=== PATIENT | male | born 1935 | race Caucasian/White ===

== ENCOUNTER 2017-02-25 17:04 | Emergency (ER) | payer MEDICARE ==
[2017-02-25 18:26] VITALS: BP 147/67
--- NOTE | 2017-02-25 19:09 | UC ---
Abdominal Pain Male HPI - HPI Summary HPI Summary: 81 male with chronic intermittent left sided abd pain for years Multiple workups have yielded no explanation His abd symptoms have not changed but for the past 2 days he has had some left sided chest pain pains are mild and last minutes (about 2) no SOB no n/v no recent diarrhea 4 weeks ago he had syncopal episode and was evaluated at [facility] by a wet inspector optical glass no f/c - History of Current Complaint Chief Complaint: UCAbdominalPain Stated Complaint: ACHES/PAINS Time Seen by Provider: 02/25/17 18:04 Hx Obtained From: Patient Onset/Duration: Gradual Onset, Lasting Weeks - years Timing: Constant Severity Initially: Mild Severity Currently: None Pain Intensity: 3 Pain Scale Used: 0-10 Numeric Location: Discrete At: LUQ Radiates: Yes Character: Cramping Aggravating Factor(s):: Nothing Alleviating Factor(s): Spontaneous Resolution Associated Signs And Symptoms: Positive: Chest Pain - Allergies/Home Medications Allergies/Adverse Reactions: Allergies Allergy/AdvReac Type Severity Reaction Status Date / Time Sulfa Antibiotics Allergy Intermediate Rash And Verified 02/25/17 18:27 Itching Home Medications: Home Medications Omeprazole CAP* [Prilosec CAP* 20 MG] 20 mg PO DAILY PRN 02/25/17 [History Confirmed 02/25/17] PMH/Surg Hx/FS Hx/Imm Hx Endocrine History Of: Reports: Diabetes - diet controlled, Thyroid Disease Cardiovascular History Of: Reports: Cardiac Disorders - [place] 1990 Denies: Pacemaker/ICD, Congestive Heart Failure Comment Only: Hypertension - on medication Respiratory History Of: Denies: COPD GI/ History Of: Denies: Renal Disease - Surgical History Surgical History: Yes Surgery Procedure, Year, and Place: 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 fx ankle. angioplasty-COPIES OF STENT CARDS ON FILE FROM 04/21 MRI, LENS IMPLANT BOTH EYES. - Family History Known Family History: Positive: Hypertension - Social History Alcohol Use: Rare Substance Use Type: None Smoking Status (MU): Former Smoker When Did the Patient Quit Smoking/Using Tobacco: very rarely in college Review of Systems Constitutional: Negative Skin: Negative Eyes: Negative ENT: Negative Respiratory: Negative Cardiovascular: Chest Pain - none here Gastrointestinal: Abdominal Pain - none now Genitourinary: Negative Motor: Negative Neurovascular: Negative Musculoskeletal: Negative Neurological: Negative Psychological: Negative All Other Systems Reviewed And Are Negative: Yes Physical Exam Triage Information Reviewed: Yes Appearance: Well-Appearing, No Pain Distress, Well-Nourished Vital Signs: Initial Vital Signs Temp 98.6 F 02/25/17 18:06 Pulse 65 02/25/17 18:06 Resp 18 02/25/17 18:06 BP 147/67 02/25/17 18:06 Pulse Ox 100 02/25/17 18:06 Vital Signs Reviewed: Yes Eyes: Positive: Conjunctiva Clear ENT: Positive: Hearing grossly normal. Negative: Nasal congestion, Nasal drainage, Trismus, Muffled/hoarse voice Neck: Positive: Supple, Nontender, No Lymphadenopathy Respiratory: Positive: Lungs clear, Normal breath sounds, No respiratory distress, No accessory muscle use Cardiovascular: Positive: RRR, No Murmur. Negative: Tachycardia, Bradycardia Abdomen Description: Positive: No Organomegaly, Soft. Negative: CVA Tenderness (R), CVA Tenderness (L), Hepatomegaly, Pulsatile Mass, Splenomegaly Musculoskeletal: Positive: ROM Intact, Edema @ - pretibial Neurological: Positive: Alert Psychological Exam: Normal Skin Exam: Normal Diagnostics - EKG Cardiac Rate: NL Cardiac Rhythm: Sinus: Normal Ectopy: None ST Segment: Normal Abd Pain Male Course/Dx - Course Course Of Treatment: I explained that we could not rule out a cardiac cause of his symptoms. Both he as his decline - Differential Dx/Clinical Impression Provider Diagnoses: chronic abdominal pain. chest pain of uncertain cause Discharge - Discharge Plan Condition: Stable Disposition: HOME Patient Education Materials: Chest Pain (ED), Chronic Abdominal Pain (ED) Referrals: Yamilet Good MD [Primary Care Provider] - As Soon As Possible Additional Instructions: I am unsure of the cause of your symptoms As explained we can not do STAT lab work Your EKG did not show any acute changes but the only way to rule out this being related to your heart is to send you to the ER for more testing If you change your mind please to the ER If you develop chest pain that last greater that 15 minutes go to the ER If you develop constant or worsening abdominal pain go to the ER If you become short of breath or start vomiting go to the ER
== END 2017-02-25 19:14 | disposition home or self-care (01) ==
LOC: UCCORT 17:04
DX: R10.12 Left upper quadrant pain (principal); R07.9 Chest pain, unspecified; Z88.2 Allergy status to sulfonamides; E11.9 Type 2 diabetes mellitus without complications; E07.9 Disorder of thyroid, unspecified; I25.2 Old myocardial infarction; Z95.5 Presence of coronary angioplasty implant and graft; I10 Essential (primary) hypertension; Z87.891 Personal history of nicotine dependence
CPT/HCPCS: 99211; G0463

== ENCOUNTER 2017-12-20 07:46 | Emergency (ER) | payer MEDICARE, BC ==
[2017-12-20 08:08] VITALS: BP 111/62
--- NOTE | 2017-12-20 08:22 | UC ---
Complaint Male HPI - HPI Summary HPI Summary: c/o UTI sx x 3-4 days. Here with his , she is historian. She reports that he has dementia and denies any significant change in mental status since sx started. "possibly a little" but doesnt think so. states he has had some more urinary frequency but no dysuria or pain in groin/perineum area. no fevers/ chills. no hematuria. Follows w/ urology for enlarged prostate w/ last PSA (recemt) 6.4 per . denies h/o prostate ca. takes avodart. - History of Current Complaint Chief Complaint: UCGU Stated Complaint: URINARY Time Seen by Provider: 12/20/17 08:07 Pain Intensity: 0 - Allergies/Home Medications Allergies/Adverse Reactions: Allergies Allergy/AdvReac Type Severity Reaction Status Date / Time MS Sulfa Antibiotics Allergy Intermediate Rash And Verified 12/20/17 08:08 [Sulfa Antibiotics] Itching PMH/Surg Hx/FS Hx/Imm Hx Previously Healthy: Yes Endocrine History: Hypothyroidism GI/ History: Other - BPH Other GI/ History: BPH Neurological History: Dementia - Surgical History Surgical History: Yes Surgery Procedure, Year, and Place: 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 fx ankle. angioplasty-COPIES OF STENT CARDS ON FILE FROM 04/21 MRI, LENS IMPLANT BOTH EYES. - Family History Known Family History: Positive: Hypertension - Social History Alcohol Use: Rare Substance Use Type: None Smoking Status (MU): Former Smoker When Did the Patient Quit Smoking/Using Tobacco: very rarely in college Review of Systems Constitutional: Negative Skin: Negative Eyes: Negative ENT: Negative Respiratory: Negative Cardiovascular: Negative Gastrointestinal: Negative Genitourinary: Frequency Motor: Negative Neurovascular: Negative Musculoskeletal: Negative Neurological: Negative Psychological: Negative Is Patient Immunocompromised?: No All Other Systems Reviewed And Are Negative: Yes Physical Exam Triage Information Reviewed: Yes Completion Of Physical Exam Limited Due To: Dementia Appearance: Well-Appearing, No Pain Distress, Well-Nourished - smiling, appropriate Vital Signs: Initial Vital Signs Temp 97.1 F 12/20/17 07:58 Pulse 80 12/20/17 07:58 Resp 16 12/20/17 07:58 BP 111/62 12/20/17 07:58 Pulse Ox 97 12/20/17 07:58 Vital Signs Reviewed: Yes Eye Exam: Normal ENT Exam: Normal ENT: Positive: Pharynx normal Neck exam: Normal Neck: Positive: Supple, Nontender, No Lymphadenopathy Respiratory: Positive: Lungs clear, Normal breath sounds, No respiratory distress, No accessory muscle use Cardiovascular Exam: Normal Cardiovascular: Positive: RRR, No Murmur, Pulses Normal, Brisk Capillary Refill Abdomen Description: Positive: Nontender, Soft. Negative: CVA Tenderness (R), CVA Tenderness (L), Distended, Guarding Bowel Sounds: Positive: Present Musculoskeletal Exam: Normal Neurological: Positive: Alert - dementia, smiling. Psychological Exam: Normal Skin Exam: Normal Complaint Male Course/Dx - Course Course Of Treatment: UA - completely nml. order cx. It does nota ppear that his confusion is any different from his baseline according to his , who is a good historian and quite attentive to him. If Cx is positive, will send in abx. They can call Friday for results. - Differential Dx/Diagnosis Differential Diagnosis/HQI/PQRI: Prostatitis, Pyelonephritis, Urinary Tract Infection Provider Diagnoses: urinary frequency, BPH Discharge - Discharge Plan Condition: Stable Disposition: HOME Patient Education Materials: Urinary Urgency and Frequency (DC) Referrals: Yamilet Good MD [Primary Care Provider] - Additional Instructions: Follow up with your urologist this week. urine dip is normal but we are ordering culture and will send in an antibiotic if it is positive. Please call on Friday for results to be sure. You should go to the ER if he develops fevers , chills or increased confusion or becomes sedated.
== END 2017-12-20 09:03 | disposition home or self-care (01) ==
LOC: UCCORT 07:46
DX: N40.1 Benign prostatic hyperplasia with lower urinary tract symptoms (principal); R35.0 Frequency of micturition; F03.90 Unspecified dementia, unspecified severity, without behavioral disturbance, psychotic disturbance, mood disturbance, and anxiety; Z87.891 Personal history of nicotine dependence
CPT/HCPCS: 81003; 87086; 99211; G0463

== ENCOUNTER 2019-09-16 08:32 | Emergency (ER) | payer MEDICARE, BC ==
--- OUTSIDE RECORDS SUMMARY | 2019-09-16 08:56 | XMS REPORT | Continuity of Care Document ---
:1935 External Reference #:[id number] Author Name Clarke Saba MD Address [address] [place] [address] Care Team Providers Name Role Phone Yamilet Good MD Care Team Information [employer] [phone] Problems Description No Information Available Social History Type Date Description Comments Sex Unknown Tobacco Use Start: Unknown Never Smoked Cigarettes ETOH Use Occassional Social Drinker Recreational Drug Use Never Used Drugs Tobacco Use Start: Unknown End: Unknown Patient is a former smoker Smoking Status Reviewed: 08/04/19 Patient is a former smoker Allergies, Adverse Reactions, Alerts Active Allergies Reaction Severity Comments Date Sulfa 02/22/2015 Inactive Allergies NKDA 02/22/2015 Medications Active Medications SIG Qnty Indications Ordering Provider Date Aspirin 1 by mouth every Unknown 81mg Tablets day Levothyroxine Sodium 1 tablet by Unknown 100mcg mouth daily Calcium Citrate + D 1 by mouth every Unknown day [id number] Tablets Vitamin C bid Unknown 1000mg Tablets Ultra Man 1 PO bid Unknown Tablets ER Ubiquinol bid Unknown 100mg Capsules Enderlin Krill bid Unknown Lopressor 1 by mouth Daily Unknown 25mg Tablets Avodart 1 by mouth every Unknown 0.5mg Capsules day Loperamide HCL Take 4 Tabs Per Unknown 2mg Capsules Day Immunizations Description No Information Available Vital Signs Date Vital Result Comment 08/04/2019 1:45pm BP Systolic 112 mmHg BP Diastolic 60 mmHg Heart Rate 62 /min Respiratory Rate 18 /min Height 67 inches 5'7" Weight 149.00 lb O2 % BldC Oximetry 97 % BMI (Body Mass Index) 23.3 kg/m2 BSA (Body Surface Area) 1.78 m2 06/17/2018 10:57am BP Systolic 132 mmHg BP Diastolic 60 mmHg Heart Rate 56 /min Respiratory Rate 19 /min Height 67 inches 5'7" Weight 129.00 lb O2 % BldC Oximetry 99 % BMI (Body Mass Index) 20.2 kg/m2 BSA (Body Surface Area) 1.68 m2 Results Description No Information Available Procedures Date Code Description Status 08/04/2019 58677 Carotid Doppler Complete Completed 08/04/2019 03001 Carotid Doppler Complete Completed 08/04/2019 00823 Echocardiography Complete Completed 08/04/2019 08215 Electrocardiogram Complete Completed Medical Devices Description No Information Available Encounters Type Date Location Provider Dx Diagnosis Office Visit 08/04/2019 Cinda Saba MD I25.9 Chronic ischemic heart 1:50p disease, unspecified I65.23 Occlusion and stenosis of bilateral carotid arteries I71.4 Abdominal aortic aneurysm, without rupture 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 I95.9 Hypotension, unspecified Assessments Date Code Description Provider 08/04/2019 I25.9 Chronic ischemic heart disease, Clarke Saba MD unspecified 08/04/2019 I65.23 Occlusion and stenosis of bilateral Clarke Saba MD carotid arteries 08/04/2019 I65.23 Occlusion and stenosis of bilateral Clarke Sbaa MD carotid arteries 08/04/2019 I71.4 Abdominal aortic aneurysm, without Clarke Saba MD rupture 08/04/2019 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 08/04/2019 I65.23 Occlusion and stenosis of bilateral Carotid Ultrasound Bilateral carotid arteries 08/04/2019 I95.9 Hypotension, unspecified Clarke Saba MD 08/04/2019 I25.9 Chronic ischemic heart disease, Clarke Saba MD unspecified 08/04/2019 E78.00 Pure hypercholesterolemia, unspecified Clarke Saba MD 08/04/2019 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 08/04/2019 I95.9 Hypotension, unspecified Clarke Saba MD 08/04/2019 I71.4 Abdominal aortic aneurysm, without Clarke Saba MD rupture Plan of Treatment Future Appointment(s):08/03/2020 1:50 pm - Echocardiogram at [facility]/03/2020 2:10 pm - Clarke Saba MD at [facility]/04/2019 - Clarke Saba MDI65.23 Occlusion and stenosis of bilateral carotid clzeqwsmN39.9 Chronic ischemic heart disease, ukxvzsnchrfK50.00 Pure hypercholesterolemia, wmrzjkpjohqY82.10 Athscl heart disease of samish coronary artery w/o ang klfldN65.9 Hypotension, oipzuhsobqnJ94.4 Abdominal aortic aneurysm, without ruptureFollow up:1 year with CUS and echoRecommendations:I have gone over, reviewed and discussed the findings on examination, clinical impression with the patient, thoroughly and comprehensively. 1. Symptoms of dizziness investigated with a carotid ultrasound for the possibility of significant vascular disease. no significant disease was detected, thiswas reviewed with the patient 2. 4.Patient's previous cardiac diagnostic studies and particularlycardiac catheterization results were explained in detail. It's clinical significance related to patients management were reviewed in plain simple language. Management of angina reviewed and advised tocontinue on current medical therapy. Natural history of angina/ischemic symptoms were reviewed and advised proper use of sublingual nitroglycerin. patient is tolerating metoprolol (MEXIS), lisinopril( GISSI), and aspirin ( physician health study). Patient has no symptoms today. This condition is chronic and stable. being anemic can cause chest pain, patient is being followed by Dr. Campos whom we spoke with about Camilla after his last visit. We will be happy to contact this physician again if required 3. Lipid management in general explained, current lipid therapy and recent values reviewed and advised present medical therapy. Jyoti reports this is being monitored by his primary care physician. Monitoring of lipids/LFT's every 6 months. Lipid values were reviewed, total [id number], triglycerides 207, HDL 44, LDL 120. Patient's reports he did not tolerate statin therapy. 5. Patient's anemia can cause ischemia, therefore recommend to address and treat this problem. MCV is normal. Iron is low. Patient will receive iron transfusions. The patient was on a low dose of metoprolol which also has been discontinued. Lisinopril was added 2.5 mg dose not likely a contributing factor but also discontinued. Patient clearly is not requiring blood pressure medicationstoday and we agree with holding these medications, at least temporarily. Functional Status Description No Information Available Mental Status Description No Information Available Referrals Description No Information Available
--- OUTSIDE RECORDS SUMMARY | 2019-09-16 08:56 | XMS REPORT | Continuity of Care Document ---
:1935 External Reference #:[id number] Author Name Yamilet Good MD Address [address] [place] [address] Care Team Providers Name Role Phone Yamilet Good MD - Family Medicine Care Team Information Configurator Problems Active Problems Provider Date Coronary arteriosclerosis Jalen Saba MD, PhD Onset: 10/28/2011 Essential hypertension Yamilet Good MD Onset: 04/04/2016 Hypothyroidism Yamilet Good MD Onset: 04/04/2016 Pure hypercholesterolemia Yamilet Good MD Onset: 04/04/2016 Benign prostatic hypertrophy without Yamilet Good MD Onset: 04/04/2016 outflow obstruction Type 2 diabetes mellitus Yamilet Good MD Onset: 04/04/2016 Urinary incontinence Yamilet Good MD Onset: 12/18/2016 Low blood pressure Yamilet Good MD Onset: 12/18/2016 Dementia with behavioral disturbance Yamilet Good MD Onset: 01/15/2017 Iron deficiency anemia Chaz Campos DO Onset: 05/23/2017 Disorder of penis Yamilet Good MD Onset: 08/07/2017 Incontinence of feces Yamilet Good MD Onset: 08/07/2017 Peripheral vascular disease Yamilet Good MD Onset: 02/12/2018 Corns and callosities Yamilet Good MD Onset: 02/12/2018 Type 2 diabetes mellitus with other Yamilet Good MD Onset: 02/12/2018 diabetic neurological complication Social History Type Date Description Comments Sex Unknown ETOH Use Denies alcohol use Tobacco Use Start: Unknown End: Unknown Denies Tobacco Use Smoking Status Reviewed: 08/23/19 Denies Tobacco Use Allergies, Adverse Reactions, Alerts Active Allergies Reaction Severity Comments Date Statins 02/13/2015 Sulfa Drugs 12/03/2016 Inactive Allergies NKDA 09/11/2011 Medications Active Medications SIG Qnty Indications Ordering Date Provider Levothyroxine Sodium 1 by mouth every day 90tabs Yamilet Good, 2018 125mcg Tablets Gabapentin 1 capsule by mouth 90caps Yamilet Good, 07/28/2019 100mg up to 3x/day for MD Capsules neuropathy Lidocaine-Prilocaine apply to affected 30gm Yamilet Good, 07/26/2019 area three times a MD 2.5-2.5% Cream day as needed for pain Finasteride 1 by mouth every 90tabs Rafa Montgomery MD 12/16/2018 5mg day, this replaces Tablets the avodart Shingrix 50 mcg intramuscular 1units Z00.00 Yamilet Good, 06/24/2018 50mcg today and in 2 to 6 MD Suspension Rec months Metoprolol Succinate 1 by mouth in in the 90tabs Yamilet Good, 2017 ER morning MD 25mg Tablets ER 24HR Loperamide HCL 4 caps qd 360caps Yamilet Good, 05/14/2018 2mg MD Capsules Nystatin-Triamcinolo apply sparingly to 60gm Yamilet Good, 07/28/2017 ne affected areas MD 2x/day 021041-6.1Unit/GM-% Cream Iron 27 1 qd Yamilet Good, 04/09/2017 240(27Fe) mg MD Tablets Krill Oil Swoope-3 1 by mouth qd Yamilet Good, 04/09/2017 MD 1250 Capsules Aspirin 1 by mouth every day 90tabs Yamilet Good, 12/18/2016 81mg Tablets MD ZHU Nitrosrudi 1 tab sl every 5 min 100tabs Yamilet Good, 04/04/2016 0.4mg x3 chest pain, if no MD Tablets Sub relief, call 911 Multivitamins 2 by mouth bid 90caps Unknown Capsules Vitamin C po q day Millie Lennon MD 500mg Tablets Probiotic Daily 1 po qd Millie Lennon MD Capsules Vitamin E-400 one daily Millie Lennon MD 400Unit Capsules Neurovit 2 tabs po bid Unknown Cognitine 1 tab po bid Unknown Ubiquinol 1 by mouth once Unknown 100mg daily Capsules Immunizations CPT Code Status Date Vaccine Lot # [id number] Given 07/01/2018 Shingrix Zoster Vaccine (HZV), Recombinant, Subunit, Adjuvante 22723 Given 2015 Pneumococcal Conjugate Vaccine 13 Valent For Intramuscular Use 78867 Given 09/29/2014 Pneumovax Injection Q2038 Given 08/17/2013 Influenza Vaccine (Fluzone) Age 3 And Older Q2038 Given 08/22/2011 Influenza Vaccine (Fluzone) Age 3 And Older 01868 Given 05/22/2011 Tdap injection Q2038 Given 08/06/2010 Influenza Vaccine (Fluzone) Age 3 And Older Q2038 Given 08/02/2009 Influenza Vaccine (Fluzone) Age 3 And Older 92734 Given 08/02/2009 Pneumovax Injection 38418 Given 10/20/2008 Zoster Vaccine Live Injection 38881 Given 06/10/2003 Pneumovax Injection Vital Signs Date Vital Result Comment 08/23/2019 2:32pm BP Systolic 112 mmHg BP Diastolic 68 mmHg Body Temperature 97.5 F Heart Rate 62 /min Respiratory Rate 16 /min Height 63.5 inches 5'3.50" Weight 146.00 lb BMI (Body Mass Index) 25.5 kg/m2 BSA (Body Surface Area) 1.70 m2 [place] body weight in kilograms 58 kg O2 % BldC Oximetry 99 % 06/24/2018 1:49pm BP Systolic 108 mmHg BP Diastolic 62 mmHg Body Temperature 97.0 F Heart Rate 66 /min Respiratory Rate 18 /min Height 66 inches 5'6" Weight 145.00 lb BMI (Body Mass Index) 23.4 kg/m2 BSA (Body Surface Area) 1.74 m2 [place] body weight in kilograms 64 kg O2 % BldC Oximetry 94 % Results Test Date Facility Test Result H/L Range Note Laboratory test 08/13/2019 [facility] Prostate 1.23 ng/mL < 4.0 1, 2 finding [address] [place] [address] Antigen [phone] Comprehensive 08/13/2019 [facility] Glucose 115 mg/dL High 74-106 Metabolic Panel [address] [place] [address] [phone] BUN 19 mg/dL High 7-18 Creatinine 1.1 mg/dL Normal 0.6-1.3 Glom Filtration Rate, Estimate >60 mL/min >60 If >60 mL/min >60 3 BUN/Creat 17.2 ratio Sodium 136 mmol/L Normal 136-145 Potassium 4.3 mmol/L Normal 3.5-5.1 Chloride 104 mmol/L Normal 98-107 Carbon Dioxide 28 mmol/L Normal 21-32 Anion Gap 4 mEq/L Low 8-16 Calcium 9.2 mg/dL Normal 8.5-10.1 Total Protein 7.5 g/dL Normal 6.4-8.2 Albumin 3.9 g/dL Normal 3.4-5.0 Globulin 3.6 g/dL Normal 1.9-4.3 Alb/Glob 1.1 ratio Bilirubin,Total 0.5 mg/dL Normal 0.2-1.0 Sgot/Ast 17 U/L Normal 15-37 SGPT/Alt 21 U/L Normal 12-78 Alkaline Phosphatase 60 U/L Normal 45-117 Laboratory test 08/13/2019 [facility] Thyroid Stim 4.53 High 0.30-4.[address] Hormone uIU/mL [place], [place] [id number] [phone] Glycohemoglobin 08/13/2019 [facility] Glycohemoglobin 7.2 % High 4.2-6.[address] (A1c) [place] [address] [phone] eAG 160 mg/dL Laboratory test 08/13/2019 [facility] Uric Acid 4.3 mg/dL Normal 3.5-7.[address] [place], [place] [id number] [phone] LDL Cholesterol 08/13/2019 [facility] Cholesterol 222 mg/dL High <200 [address] [place] [address] [phone] Triglycerides 219 mg/dL High <150 6 HDL Cholesterol 35 mg/dL Low >40 7 LDL-Cholesterol 143 mg/dL < 100 8 CBC W/Automated 08/13/2019 [facility] White Blood 6.9 K/uL Normal 3.4-10.[address] Count [place], [place] [id number] [phone] Red Blood Count 4.53 M/uL Normal 4.20-5.80 Hemoglobin 13.3 gm/dL Normal 12.8-17.0 Hematocrit 43.2 % Normal 38.0-48.0 Mean Cell Volume 95.4 fl Normal 80.0-96.0 Mean Corpuscular HGB 29.4 pg Normal 27.0-33.0 Mean Corpuscular HGB Conc 30.8 g/dL Low 31.7-36.0 Platelet Count 208 K/uL Normal 155-360 Red Cell Distri Width SD 53.2 fl High 36-51 Red Cell Distri Width %CV 15.0 % Normal 11.6-15.8 Mean Platelet Volume 11.9 fl High 6.6-10.6 Neut% 65.5 % Normal 33.0-73.0 Lymph % 18.0 % Low 20.0-42.0 [place] % 7.9 % Normal 0.0-10.0 Eo% 7.4 % High 0.0-6.6 Bas% 0.9 % Normal 0.0-1.1 Immature Grans 0.3 % Normal 0.0-5.0 NRBC % 0.0 /100WBC < 10/ 100 WBC Neut# 4.50 K/uL Normal 1.8-7.0 Lymph # 1.24 K/uL Normal 1.0-4.0 [place] # 0.54 K/uL Normal 0.0-0.8 Eos # 0.51 K/uL High 0.0-0.5 Baso # 0.06 K/uL Normal 0.0-0.1 Immature Grans Absolute 0.02 K/uL NRBC # 0.00 K/uL 1 Z12.5 E03.9 E11.9 E78.5 D50.9 M79.676 2 THIS ASSAY IS NOT INTENDED A CANCER SCREENING TEST The concentration of PSA in a given specimen, determined with assays from different manufacturers, can vary due to differences in assay methods and reagent specificity. Values obtained from different assay methods cannot be used interchangeably. Method: [employer] [place] Chemiluminescent immunoassay. 3 Note: Persistent reduction for 3 months or more in an eGFR <60 mL/min/1.73 m2 defines CKD. Patients with eGFR values >/=60 mL/min/1.73 m2 may also have CKD if evidence of persistent proteinuria is present. The original MDRD equation for estimated GFR is not valid for patients less than 18 years of age. Additional information may be found at www.kdoqi.org. 4 Elevated levels of HbA1c suggest the need for more aggressive treatment of glycemia. The [place] [employer] recommends that a primary goal of therapy should be a HbA1c of <7% and that physicians should re-evaluate the treatment regimen in patients with HbA1c values consistently >8%. 5 Reference Guidelines*: Desirable: ........... < 200 mg/dL Borderline High: ..... 200-239 mg/dL High: ................ >= 240 mg/dL * The National Cholesterol Education Program (NCEP) 6 Reference Guidelines*: Normal: ............. < 150 mg/dL Borderline High: .... 150-199 mg/dL High: ............... 200-499 mg/dL Very High: .......... > 500 mg/dL * Source: National Cholesterol Education Program (NCEP) 7 Reference Guidelines*: Low HDL: ..... < 40 mg/dL Normal: ..... 40-60 mg/dL Desirable: ... > 60 mg/dL *The National Cholesterol Education Program(NCEP) 8 Reference Guidelines*: Optimal:........... <100 mg/dL Near Optimal....... 100-129 mg/dL Borderline High.... 130-159 mg/dL High............... 160-189 mg/dL Very High.......... >=190 mg/dL * Source: National Cholesterol Education Program (NCEP) Procedures Date Code Description Status 06/24/2019 355853991 Diabetic Foot Exam Completed 03/21/2017 22278193 Colonoscopy Completed 11/10/1999 23759360 Flexible Sigmoidoscopy Completed Medical Devices Description No Information Available Encounters Description No Information Available Assessments Date Code Description Provider 08/23/2019 Z00.00 Encounter for general adult medical examination Yamilet Good MD without abnormal findings 08/23/2019 F03.91 Unspecified dementia with behavioral disturbance Yamilet Good MD 08/23/2019 E03.9 Hypothyroidism, unspecified Yamilet Good MD 08/23/2019 R32 Unspecified urinary incontinence Yamilet Good MD 08/23/2019 N40.0 Benign prostatic hyperplasia without lower Yamilet Good MD urinary tract symptoms 08/23/2019 I25.10 Atherosclerotic heart disease of [place] coronary Yamilet Good MD artery without angina pectoris 08/23/2019 E11.9 Type 2 diabetes mellitus without complications Yamilet Good MD 08/23/2019 E78.00 Pure hypercholesterolemia, unspecified Yamilet Good MD 08/23/2019 I73.9 Peripheral vascular disease, unspecified Yamilet Good MD Plan of Treatment 08/23/2019 - Yamilet Good MDZ00.00 Encounter for general adult medical examination without abnormal findingsComments:MAINTAIN SOME REGULAR EXERCISE AND WEIGHT;SUNSCREEN OR COVER UP TO AVOID SKIN CANCER, F/U WITH EXPEDITER.ON VIT. D , CALCIUM SUPPLEMENTSIMMUNIZATIONS: FLU SHOT NEXT WEEK, OTHERWISE ALL UTD.PSA ,COLON CA SCREENING , LABS PER PREVENTIVE SCREEN;LABS: WE REVIEWED YOUR RECENT LABS.COLONOSCOPY : NO MORE;HEALTH CARE PROXY UPDATED;ADL 'S, IADL'S: YOU HAVE GOOD HELP, YOU ARE SAFE AT HOME.F03.91 Unspecified dementia with behavioral disturbanceComments:YOU ARE DOING WELL AT HOME.E03.9 Hypothyroidism, unspecifiedComments:THYROID DOSE IS TOO LOW NOW SO I HAVE INCREASED IT TO 125 MCG; RE-CHECK IN 3 MONTHS, I WROTE UP THE ORDER AND SENT TO OUR LAB.Follow up:6 MOR32 Unspecified urinary incontinenceComments:F/U WITH UROLOGIST WHO WILL BE CHECKING YOU SOON.N40.0 Benign prostatic hyperplasia without lower urinary tract symptomsComments:PSA IS GOOD THIS MONTH.I25.10 Atherosclerotic heart disease of [place] coronary artery without angina pectorisComments:cont. all current cardiac meds; f/u with color blender.E11.9 Type 2 diabetes mellitus without complicationsComments:YOU HAVE DONE WELL ON DIET CONTROL, I AM HAPPY WITH YOUR HEMOGLOBIN AIC, YOU DON'T HAVE TO TAKE MEDICATION.E78.00 Pure hypercholesterolemia, unspecifiedComments:YOU ARE DOING WELL ON DIET CONTROL.I73.9 Peripheral vascular disease, unspecifiedComments:YOU DID SEE A VASCULAR SURGEON WHO FELT NOTHING NEEDED TO BE DONE AT THIS POINT. I WILL FOLLOW THIS;KEEP YOUR FEET WARM. Functional Status Functional Condition Comment Date Status Glasses Active Dependent with all IADL's Active Independent with all ADL's Active Dependent with toileting Active Dependent with dressing Active Dependent with bathing Active Mental Status Description No Information Available Referrals Description No Information Available
[2019-09-16 09:35] VITALS: BP 135/63
--- NOTE | 2019-09-16 10:07 | UC ---
Skin Complaint HPI - HPI Summary HPI Summary: 83 y/o male presents to the urgent care accompany by c/o of a painful cyst on his posterior neck for the past 2 days. reports he usually wears an u-shape pillow and he started to c/o pain, then, she noticed it. Pt states Pain is 2/10 and at touch is 8/10. This morning the cyst was draining a yellowish discharge. He has taking Gabapentin PO for his pain which he usually takes for his neuropathy. He denies Hx of MRSA and never had an abscess in the past. He also c/o his chronic left heel pain for 1 year. He has Hx of Reynaud's disease and sometimes his feet get very cold and numb. He has seen his PCP, [facility] and auto parts clerk and nobody has been able to help him with his left heel pain. He refused to use a walker to ambulate and states at the end of the day he left heel pain is worse. Today pain is at times 5/10. Pt denies fever, LAMB, dizziness, SOB, chest pain, abdominal pain, N/V/D. - History of Current Complaint Chief Complaint: UCSkin Time Seen by Provider: 09/16/19 10:06 Stated Complaint: SKIN COMP Hx Obtained From: Patient, Family/Soil Sampler - Onset/Duration: Gradual Onset, Lasting Days - 2 days, Still Present Skin Exposure Onset/Duration: Days Ago - 2 days Timing: Constant Onset Severity: Mild Current Severity: Mild Pain Intensity: 2 - at touch is 8/10 Pain Scale Used: 0-10 Numeric Location: Discrete - posterior neck infected cyst Character: Swelling, Pain, Redness, Raised, Painful Aggravating Factor(s): Touch Alleviating Factor(s): Nothing Associated Signs & Symptoms: Positive: Rash - posterior infected cyst. Negative: Fever, Chills - Allergy/Home Medications Allergies/Adverse Reactions: Allergies Allergy/AdvReac Type Severity Reaction Status Date / Time Sulfa (Sulfonamide Allergy Intermediate Rash And Verified 09/16/19 09:19 Antibiotics) Itching Rufbyqm-Bfq-Ktl Reductase Allergy Leg Cramps Verified 09/16/19 09:35 Inhibitor Home Medications: Home Medications Levothyroxine TAB* [Synthroid 125 MCG TAB*] 125 mcg PO DAILY 09/16/19 [History Confirmed 09/16/19] PMH/Surg Hx/FS Hx/Imm Hx Previously Healthy: Yes Endocrine History: Diabetes - diet control, Dyslipidemia - diet control Cardiovascular History: Cardiac Disease, Hypertension Other Neurological History: congenital hip, altzheimers - Surgical History Surgical History: Yes Surgery Procedure, Year, and Place: 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 fx ankle. angioplasty-COPIES OF STENT CARDS ON FILE FROM 04/21 MRI, LENS IMPLANT BOTH EYES. - Family History Known Family History: Positive: Cardiac Disease, Hypertension, Diabetes - Social History Occupation: Retired Lives: With Family Alcohol Use: Rare Substance Use Type: None Smoking Status (MU): Former Smoker When Did the Patient Quit Smoking/Using Tobacco: very rarely in college Review of Systems All Other Systems Reviewed And Are Negative: Yes Constitutional: Positive: Negative Skin: Positive: Other - infected cyst in the porterior skin of neck, painful and draining yellowish discharge Eyes: Positive: Negative ENT: Positive: Negative Respiratory: Positive: Negative Cardiovascular: Positive: Negative Gastrointestinal: Positive: Negative Genitourinary: Positive: Negative Motor: Positive: Negative Neurovascular: Positive: Negative Musculoskeletal: Positive: Other: - left heel pain Neurological: Positive: Negative Psychological: Positive: Negative Is Patient Immunocompromised?: Yes Physical Exam - Summary Physical Exam Summary: Vital Signs Reviewed: Yes General: well developed, well nourished old male sitting in wheel chair w/o any apparent pain distress Eye Exam: Normal Eyes: Positive: Conjunctiva Clear - PERRLA, EOMI, fundi grossly normal ENT: Positive: Normal ENT inspection, Hearing grossly normal, Pharynx normal, TMs normal Neck: Positive: Supple, Nontender, No Lymphadenopathy Respiratory: Positive: Chest non-tender, Lungs clear, Normal breath sounds, No respiratory distress Cardiovascular: Positive: RRR, No Murmur, Pulses Normal, Brisk Capillary Refill Abdomen Description: Positive: Nontender, No Organomegaly, Soft. Negative: CVA Tenderness (R), CVA Tenderness (L) Bowel Sounds: Positive: Present Musculoskeletal: left Ankle: Pt is able to bear weight and ambulate w/ limping. The L ankle is without obvious asymmetry or deformity when compared to the R ankle. Decreased ROM due to pain. MIld diffuse swelling over both malleolus, with point tenderness to palpation over the left heel. No ecchymosis or bruising observed. Talar tilt test is negative for ligament laxity to valgus or varus stress. Unable to perform anterior drawer due to pain. Peroneal nerve is intact with strong eversion and plantar flexion. Positive mild diminish sensation over the LF foot and Rt ankle due to neuropathy, positive pulses, capillary refill intact. Neurological: Positive: Alert, Muscle Tone Normal Psychological Exam: Normal Skin: Positive: Mid base of the posterior neck w/ an small erythematous pustule that is indurated and fluctuant, tender to palpation, swollen, and warm to touch about 2.0x1.0cm in size. FROM of neck, sensation is intact, capillary refill WNL, reflexes WNL Triage Information Reviewed: Yes Vital Signs: Initial Vital Signs Temp 98.3 F 09/16/19 09:25 Pulse 60 09/16/19 09:25 Resp 20 09/16/19 09:25 BP 135/63 09/16/19 09:25 Pulse Ox 98 09/16/19 09:25 Course/Dx - Course Course Of Treatment: 83 y/o male presents to the urgent care accompany by c/o of a painful cyst on his posterior neck for the past 2 days. reports he usually wears an u-shape pillow and he started to c/o pain, then, she noticed it. Pt states Pain is 2/10 and at touch is 8/10. This morning the cyst was draining a yellowish discharge. He has taking Gabapentin PO for his pain which he usually takes for his neuropathy. He denies Hx of MRSA and never had an abscess in the past. He also c/o his chronic left heel pain for 1 year. He has Hx of Reynaud's disease and sometimes his feet get very cold and numb. He has seen his PCP, [facility] and auto parts clerk and nobody has been able to help him with his left heel pain. He refused to use a walker to ambulate and states at the end of the day he left heel pain is worse. Today pain is at times 5/10. Pt denies fever, LAMB, dizziness, SOB, chest pain, abdominal pain, N/V/D. Hx obtained. Pt is hemodynamically stble, A&OX3, Vitals: WNL. Pt w/ Mid base of the posterior neck w/ an small erythematous pustule that is indurated and fluctuant, tender to palpation, swollen, and warm to touch about 2.0x1.0cm in size. FROM of neck and point tenderness over the left heel w/ decrease ROM and mild swelling around the left ankle on examination. Left ankle X-ray ordered, Impression: diffuse soft tissue swelling and osteopenia, no fractures observed as per radiologist. I&D of abscess procedure:The procedure was explained and consent obtained. [place] protocol performed. The wound was anesthetized first w/ local LET since Pt is very apprehensive about the procedure as per request. Then 1ml L[place] with good anesthesia. Sterile drape and prep were done. The fluctuant center was incised with #11 blade scalpel. A moderate amount of caseous material was expressed, However, Pt didn't allow to express all the pus since he wa reluctant to continue w/ procedure . wound cultures obtained and sent to lab top r/o MRSA. The wound was probed for loculated areas and irrigated with normal saline. The wound was packed loosely with wick or left open. Bacitracin topical ointment applied and wound covered with sterile dressing. The patient tolerated the procedure well. Pt allergic to Sulfa. Pt Rx Keflex PO and Bacitrain oin. advised to continue w/ Gabapentin or Tylenol PO for pain. Advised to return to the urgent care for wound check up in 2 days. Pt advised fever develops and pain increase despite ABX to go immediately to the ER for further management. Pt was ernst a referral w/ [facility] Dr Lima for further management in his left heel symptoms. and Pt understood and agreed with D/C instructions. Pt Left the clinic ambulating A& OX3. - Differential Diagnoses - Skin Complaint Differential Diagnoses: Abscess, Cellulitis, Contact Dermatitis, Local Allergic Reaction, MRSA - Diagnoses Provider Diagnosis: Cutaneous abscess of neck, Chronic pain of left heel, Osteopenia Discharge ED - Sign-Out/Discharge Documenting (check all that apply): Patient Departure - D/c home All imaging exams completed and their final reports reviewed: Yes - Discharge Plan Condition: Stable Disposition: HOME Prescriptions: Bacitracin OINTMENT* 1 applic TOPICAL BID #1 tube Cephalexin CAP* [Keflex CAP*] 500 mg PO QID #28 cap Patient Education Materials: Abscess (ED) Referrals: Wally Young MD [Medical Doctor] - 3 Days Yamilet Good MD [Primary Care Provider] - 2 Days Regine Amezquita [Medical Doctor] - 3 Days Anatoliy Lima DPM [Doctor of Podiatric Medicine] - 3 Days Additional Instructions: 1-Please take full course of antibiotic to avoid resistance. Keep wound clean and dry with a sterile dressing. Apply bacitracin topical as directed 2- F/u wound check up in 2 days with your PCP or at the urgent care for removal of packing 3-. Continue taking Gabapentin PO as directed by your PCP to alleviate pain 4-If you develop fever or redness despite antibiotic please go to the ER immediately or return to the Urgent care. Otherwise f/u w/ Plasterer Helper Dr Young or Evangelina for further management on the abscess 5- Wound culture sent to lab, if any abnormal result you will receive a call from us. 6- Please f/u w/ Podiatrists Dr Lima for further management in your heel pain - Billing Disposition and Condition Condition: STABLE Disposition: Home - Attestation Statements Provider Attestation: Per institutional requirements, I have reviewed the chart, however, I was not consulted specifically or made aware of this patient by the midlevel provider. I did not personally evaluate, interact with , or disposition this patient.
[2019-09-16] MEDS ORDERED: Lidocaine/Epineph/Tetraca GEL* 3 ML GEL IN SYR TOPICAL ONE (10:31)
[2019-09-16] MEDS ORDERED: Lidocaine 1% MPF ** 5 ML VIAL INJ ONE (11:04)
== END 2019-09-16 12:35 | disposition home or self-care (01) ==
LOC: UCCORT 08:32
DX: L02.11 Cutaneous abscess of neck (principal); M25.572 Pain in left ankle and joints of left foot; G89.29 Other chronic pain; M85.872 Other specified disorders of bone density and structure, left ankle and foot; E11.9 Type 2 diabetes mellitus without complications; I10 Essential (primary) hypertension; G30.9 Alzheimer's disease, unspecified; F02.80 Dementia in other diseases classified elsewhere, unspecified severity, without behavioral disturbance, psychotic disturbance, mood disturbance, and anxiety; Z88.8 Allergy status to other drugs, medicaments and biological substances; Z88.2 Allergy status to sulfonamides; Z87.891 Personal history of nicotine dependence
CPT/HCPCS: 10060; 87070; 87077; 87205; 87640; 87641; 99212; A9270-GY; G0463